=== PATIENT | female | born 1975 | race Caucasian/White ===

== ENCOUNTER 2017-09-02 14:16 | Inpatient (IN) | payer SELFPAY ==
--- NOTE | 2017-09-02 14:54 | HP ---
Screened but not Admitted - Documentation of Visit Screened but not Admitted: Yes Left Prior to Completion of Assessment: No Insurance Authorization Denied: No Patient Does Not Meet Criteria for Admission: No Level of Care Recommended at this Time: ER Evaluation/Care Additional Information/Explanation: 42 yo female presents today for alcohol detox. Patient presents very tremorous. Complain of right sided chest pain, reports "I feel like I am having heart attack." Patient also reports she has hx of fibroids and has been on her menses for four months and bleeding has worsen. Vital signs BP 169/97, HR 114, RR22, T 97.7. Aox3, no repiratory distress, lungs clear through out, s1, s2, no jvd, skin intact, no oedema or erythema. Patient was sent to [facility] for further evaluation. Patient was transported via [facility]. Patient endorse to Dr. Tan.
[2017-09-02] MEDS ORDERED: MELATONIN 5 MG TABLETS PO PRN (22:00)
--- NOTE | 2017-09-02 22:29 | HP ---
CIWA Score - CIWA Score Nausea/Vomitin-Int. Nausea w/Dry Heave Muscle Tremors: 4-Moderate,w/Arms Extend Anxiety: 7-Acute Panic/Severe Agitation: 4-Moderately Restless Paroxysmal Sweats: 3 Orientation: 3-Disoriented Date>2 days Tacttile Disturbances: 0-None Auditory Disturbances: 0-None Visual Disturbances: 0-None Headache: 3-Moderate CIWA-Ar Total Score: 28 Admission ROS BHS - HPI Chief Complaint: C/O WITHDRAWAL SX'S. CLIENT IS SEEKING DETOX TXMENT. Allergies/Adverse Reactions: Allergies Allergy/AdvReac Type Severity Reaction Status Date / Time No Known Allergies Allergy Verified 09/02/17 15:19 History of Present Illness: 42 Y.O. MALE WITH LONG HX/O ALCOHOLISM HERE FOR DETOX. CLIENT WAS SENT TO [facility] FOR ANXIETY/PANIC ATTACK AND CHEST PAIN. SHE ALSO COMPLAINED OF VAGINAL BLEEDING FOR THE LAST 3 WEEKS. SHE WAS SEEN, STABILIZED AND MEDICALLY CLEARED. CLIENT REPORTS THIS IS HER FIRST TIME IN DETOX. REFERRED BY HER ALCOHOL COUNSELOR. REPORTS LONGEST CLEAN TIME 3 WEEKS. DENIES HX/O SEIZURES AND BLACK OUTS, SI/HI. PMHX: FIBROIDS W/ VAGINAL BLEEDING X 3 WEEKS. ANEMIA. H/H DONE IN ED WNL PSYCH: DEPRESSION Exam Limitations: Other (DROWSI S/P 4 MG OF ATIVAN IN [facility] ER) - Ebola screening Have you traveled outside of the country in the last 21 days: No (N) Have you had contact with anyone from an Ebola affected area: No Have you been sick,other than usual withdrawal symptoms: No Do you have a fever: No - Review of Systems Constitutional: Chills, Loss of Appetite, Night Sweats, Changes in sleep EENT: reports: No Symptoms Reported Respiratory: reports: Shortness of Breath (ANXIETY) Cardiac: reports: Chest Pain (WITH ANXIETY. PRESENTLY DENIES) GI: reports: Nausea, Poor Appetite, Vomiting : reports: No Symptoms Reported Musculoskeletal: reports: No Symptoms Reported Integumentary: reports: No Symptoms Reported Neuro: reports: Tremors Endocrine: reports: No Symptoms Reported Hematology: reports: Anemia, Other (VAGINAL BLEEDING X 3 WEEKS DUE TO UTERINE FIBROIDS) Psychiatric: reports: Orientated x3, Anxious, Depressed Other Systems: Reviewed and Negative Patient History - Patient Medical History Hx Anemia: Yes Hx Asthma: No Hx Chronic Obstructive Pulmonary Disease (COPD): No Hx Cancer: No Hx Cardiac Disorders: No Hx Congestive Heart Failure: No Hx Hypertension: No Hx Hypercholesterolemia: No Hx Pacemaker: No HX Cerebrovascular Accident: No Hx Seizures: No Hx Dementia: No Hx Diabetes: No Hx Gastrointestinal Disorders: No Hx Liver Disease: No Hx Genitourinary Disorders: No Hx Sexually Transmitted Disorders: No Hx Renal Disease (ESRD): No Hx Thyroid Disease: No Hx Human Immunodeficiency Virus (HIV): No Hx Hepatitis C: No Hx Depression: Yes Hx Suicide Attempt: No Hx Bipolar Disorder: No Hx Schizophrenia: No Other Medical History: ANXIETY/ UTERINE FIBROIDS - Patient Surgical History Past Surgical History: Yes Hx Orthopedic Surgery: Yes (LEFT INDEX FINGER) Other Surgical History: JAW SX Anesthesia Reaction: No - PPD History Previous Implant?: No Implanted On Prior R Admission?: No PPD to be Administered?: Yes - Reproductive History Patient is a Female of Child Bearing Age (11 -55 yrs old): Yes Last Menstrual Period: 08/12/17 LMP comment: BLEEDING X 3 WEEKS Patient : No (NEG [facility] [place]) - Smoking Cessation Smoking history: Current every day smoker Have you smoked in the past 12 months: Yes Aproximately how many cigarettes per day: 15 Cigars Per Day: 0 Hx Chewing Tobacco Use: No Initiated information on smoking cessation: Yes 'Breaking Loose' booklet given: 09/02/17 - Substance & Tx. History Hx Alcohol Use: Yes Hx Substance Use: Yes Substance Use Type: Alcohol Hx Substance Use Treatment: No - Substances Abused VODKA Route: Oral Frequency: 3-6 times per week Amount used: 1PINT Age of first use: 41 Date of Last Use: 09/08/17 Family Disease History - Family Disease History Family Disease History: Other: Mother (ALCOHOLIC), Brother (DRUGS) Admission Physical Exam BHS - Vital Signs Vital Signs: Vital Signs - 24 hr 09/02/17 09/02/17 15:45 21:32 Temperature 97.7 F 98.7 F Pulse Rate 114 H 95 H Respiratory 22 18 Rate Blood Pressure 169/97 160/104 - Physical General Appearance: Yes: Other (OVERSEDATED/ DROWSI) HEENTM: Yes: EOMI, Normal ENT Inspection, Normocephalic, Normal Voice, JOSE, Pharynx Normal Respiratory: Yes: Chest Non-Tender, Lungs Clear, Normal Breath Sounds, No Respiratory Distress, No Accessory Muscle Use Neck: Yes: No masses,lesions,Nodules, Supple, Trachea in good position Breast: Yes: Breast Exam Deferred Cardiology: Yes: Regular Rhythm, S1, S2, Tachycardia Abdominal: Yes: Normal Bowel Sounds, Non Tender, Flat, Soft Genitourinary: Yes: Within Normal Limits Back: Yes: Normal Inspection Musculoskeletal: Yes: Other (UNSTEADY GAIT) Extremities: Yes: Normal Range of Motion, Non-Tender, Tremors Neurological: Yes: Alert, Disoriented (DUE TO SEDATION) Integumentary: Yes: Warm, Other (FLUSHED) Lymphatic: Yes: Within Normal Limits - Diagnostic (1) Alcohol dependence with uncomplicated withdrawal Current Visit: Yes Status: Acute (2) Uterine fibroid Current Visit: Yes Status: Chronic (3) Anemia Current Visit: Yes Status: Chronic Qualifiers: Anemia type: iron deficiency (4) Nicotine dependence Current Visit: Yes Status: Chronic Qualifiers: Nicotine product type: cigarettes Substance use status: uncomplicated Qualified Code(s): F17.210 - Nicotine dependence, cigarettes, uncomplicated (5) Vaginal bleeding Current Visit: Yes Status: Acute Cleared for Admission [facility] - Detox or Rehab [facility] Level of Care: Medically Managed Detox Regimen/Protocol: Librium Claeared for Rehab Admission: No [facility] Breath Alcohol Content Breath Alcohol Content: 0 Urine Pregancy Test - Result Urine Test Results: Negative- NO Line Present Urine Drug Screen - Results Drug Screen Negative: Yes
[2017-09-02] MEDS ORDERED: MAG HYDROX/AL HYDROX/SIMETH 30 ML UNIT-DOSE CUP PO PRN (23:00)
[2017-09-02] MEDS ORDERED: NICOTINE POLACRILEX 2 MG GUM BC PRN (23:00)
[2017-09-02] MEDS ORDERED: MENTHOL/PHENOL 1 EACH UD MM PRN (23:00)
[2017-09-02] MEDS ORDERED: MAGNESIUM HYDROX 2400MG/30ML ORAL SUSPENSION 30 ML CUP PO PRN (23:00)
[2017-09-02] MEDS ORDERED: guaiFENesin/D-METHORPHAN HB 10 ML UNIT-DOSE CUPS PO PRN (23:00)
[2017-09-02] MEDS ORDERED: P-EPHED 60MG/TRIPROLIDI 2.5MG TABLET PO PRN (23:00)
[2017-09-02] MEDS ORDERED: LOPERAMIDE HCL 2 MG CAPSULE PO PRN (23:00)
[2017-09-02] MEDS ORDERED: ACETAMINOPHEN 325 MG TABLET (FP) PO PRN (23:00)
[2017-09-02] MEDS ORDERED: MAGNESIUM CITRATE 300 ML BOTTLE PO PRN (23:00)
[2017-09-02] MEDS ORDERED: IBUPROFEN 400 MG TABLET (FP) PO PRN (23:00)
--- NOTE | 2017-09-02 23:08 | PN ---
S Progress Note Note: HOLD 2300 LIBRIUM AND REEVALUATE FOR 5AM DOSE. CLIENT OVER SEDATED. GIVEN A TOTAL OF 4 MG OF ATIVAN WHILE AT [facility] TODAY
[2017-09-02] MEDS: chlordiazePOXIDE HCL 25 MG CAPSULE PO SCH (23:59)
[2017-09-03] MEDS: chlordiazePOXIDE HCL 25 MG CAPSULE PO PRN ×2 (07:26→18:36)
--- NOTE | 2017-09-03 08:49 | CONSULT ---
[facility] Psychiatric Consult - Data Date of interview: 09/03/17 Admission source: [facility] Identifying data: This is 42 years old female, single, unemployed, homeless, with no PA support, with no psychiatric hospitalization history, reports Alcohol withdrawal symptoms and seeking for detox. Substance Abuse History: Smoking history: Current every day smoker. Have you smoked in the past 12 months: Yes. Aproximately how many cigarettes per day: 15. Cigars Per Day: 0. Hx Chewing Tobacco Use: No. Initiated information on smoking cessation: Yes. 'Breaking Loose' booklet given: 09/02/17. - Substance & Tx. History. Hx Alcohol Use: Yes. Hx Substance Use: Yes. Substance Use Type : Alcohol. Hx Substance Use Treatment: No. - Substances Abused. VODKA. Route: Oral. Frequency: 3-6 times per week. Amount used: 1PINT. Age of first use: 41. Date of Last Use: 09/08/17 Medical History: Uterine Fibroid, Anemia history Psychiatric History: Patient reports history of Anxiety, reports taking prior to admission: Zoloft 50mg poqd. Denies psychiatric hospitalization history Physical/Sexual Abuse/Trauma History: Denies Additional Comment: Zoloft 50mg poqd Mental Status Exam - Mental Status Exam Alert and Oriented to: Person Cognitive Function: Fair Patient Appearance: Unkempt Mood: Sad Affect: Flat Patient Behavior: Sedated Speech Pattern: Delayed Voice Loudness: Mildly Soft/Quiet Thought Process: Circumstantial Thought Disorder: Being Controlled Hallucinations: Denies Suicidal Ideation: Denies Homicidal Ideation: Denies Insight/Judgement: Fair Sleep: Difficulty falling asleep Appetite: Weight loss Muscle strength/Tone: Mild Hypotonicity Gait/Station: Shuffling Additional Comments: Zoloft 50mg poqd Psychiatric Findings - Problem List ([place] 1, 2,3) (1) Drug-induced mood disorder Current Visit: Yes Status: Acute (2) Alcohol dependence with uncomplicated withdrawal Current Visit: Yes Status: Acute (3) Nicotine dependence Current Visit: Yes Status: Chronic Qualifiers: Nicotine product type: cigarettes Substance use status: uncomplicated Qualified Code(s): F17.210 - Nicotine dependence, cigarettes, uncomplicated (4) Alcohol withdrawal Current Visit: No Status: Acute Qualifiers: Complication of substance-induced condition: uncomplicated Qualified Code(s ): F10.230 - Alcohol dependence with withdrawal, uncomplicated - Initial Treatment Plan Initial Treatment Plan: Zoloft 50mg poqd
[2017-09-03] MEDS ORDERED: SERTRALINE HCL 50 MG TABLET (FP) PO SCH (10:00)
[2017-09-03] MEDS ORDERED: medroxyPROGESTERone ACET 5 MG TABLET PO SCH (10:00)
[2017-09-03] MEDS: PRENATAL VITAMINS W/ FOLIC ACID TABLET (FP) PO SCH (10:13)
[2017-09-03 10:37] LABS: HEMATOCRIT 35.2 % (32.4-45.2); HEMOGLOBIN 11.8 GM/dL (10.7-15.3); MCH 30.3 pg (25.7-33.7); MCHC 33.6 g/dl (32.0-36.0); MEAN CELL VOLUME 90.2 fl (80-96); MEAN PLT VOLUME 7.2 fl (7.5-11.1); PLATELET COUNT 261 K/MM3 (134-434); RDW 21.4 % (11.6-15.6); WHITE BLOOD COUNT 5.9 K/mm3 (4.0-10.0)
[2017-09-03 10:40] LABS: CHLORIDE 100 mmol/L (98-107); POTASSIUM 3.2 mmol/L (3.5-5.1); SODIUM 137 mmol/L (136-145)
[2017-09-03 10:55] LABS: ALBUMIN 3.4 g/dl (3.4-5.0); ALK PHOS 80 U/L (45-117); ANION GAP 12 (8-16); BILIRUBIN,TOTAL 0.9 mg/dL (0.2-1.0); BLOOD UREA NITROGEN 7 mg/dL (7-18); CALCIUM 7.7 mg/dL (8.5-10.1); CO2 25 mmol/L (21-32); CREATININE 0.5 mg/dL (0.55-1.02); GLUCOSE,RANDOM 82 mg/dL (74-106); SGOT/AST 46 U/L (15-37); SGPT/ALT 26 U/L (12-78); TOT PROT 6.6 g/dl (6.4-8.2)
[2017-09-03] MEDS: NICOTINE 14 MG/24 HOURS TOPICAL PATCH TD SCH (11:05)
--- NOTE | 2017-09-03 11:26 | EKG ---
Test Reason : Blood Pressure : / mmHG Vent. Rate : 078 BPM Atrial Rate : 078 BPM P-R Int : 122 ms QRS Dur : 092 ms QT Int : 424 ms P-R-T Axes : -06 070 071 degrees QTc Int : 483 ms NORMAL SINUS RHYTHM PROLONGED QT ABNORMAL ECG WHEN COMPARED WITH ECG OF 02-SEP-2017 15:41, T WAVE INVERSION NO LONGER EVIDENT IN ANTERIOR LEADS Confirmed by DARSHAN PINA, ALVERTO ([id number]) on 09/03/2017 11:25:44 AM Referred By: Confirmed By:ALVERTO SEXTON MD
[2017-09-03] MEDS ORDERED: ONDANSETRON *ODT* 4 MG TABLET SL PRN (11:39)
--- NOTE | 2017-09-03 11:44 | PN ---
S CIWA - CIWA Score Nausea/Vomitin Muscle Tremors: 3 Anxiety: 3 Agitation: 2 Paroxysmal Sweats: 1-Minimal Palms Moist Orientation: 0-Oriented Tacttile Disturbances: 1-Very Mild Itch/Numbness Auditory Disturbances: 1-Very Mild Visual Disturbances: 0-None Headache: 2-Mild CIWA-Ar Total Score: 16 BHS Progress Note (SOAP) Subjective: alert,irritable,anxious,interrupted sleep,tremor Objective: 09/03/17 11:41 Vital Signs Temperature 98.1 F 09/03/17 09:44 Pulse Rate 97 H 09/03/17 09:44 Respiratory Rate 128 H 09/03/17 09:44 Blood Pressure 155/93 09/03/17 09:44 O2 Sat by Pulse Oximetry (%) 09/03/17 11:41 Laboratory Last Values WBC 5.9 K/mm3 (4.0-10.0) D 09/03/17 07:00 RBC 3.90 M/mm3 (3.60-5.2) 09/03/17 07:00 Hgb 11.8 GM/dL (10.7-15.3) 09/03/17 07:00 Hct 35.2 % (32.4-45.2) 09/03/17 07:00 MCV 90.2 fl (80-96) 09/03/17 07:00 MCH 30.3 pg (25.7-33.7) 09/03/17 07:00 MCHC 33.6 g/dl (32.0-36.0) 09/03/17 07:00 RDW 21.4 % (11.6-15.6) H 09/03/17 07:00 Plt Count 261 K/MM3 (134-434) 09/03/17 07:00 MPV 7.2 fl (7.5-11.1) L 09/03/17 07:00 Sodium 137 mmol/L (136-145) 09/03/17 07:00 Potassium 3.2 mmol/L (3.5-5.1) L 09/03/17 07:00 Chloride 100 mmol/L (98-107) 09/03/17 07:00 Carbon Dioxide 25 mmol/L (21-32) 09/03/17 07:00 Anion Gap 12 (8-16) 09/03/17 07:00 BUN 7 mg/dL (7-18) 09/03/17 07:00 Creatinine 0.5 mg/dL (0.55-1.02) L 09/03/17 07:00 Creat Clearance w eGFR > 60 (>60) 09/03/17 07:00 Random Glucose 82 mg/dL (74-106) 09/03/17 07:00 Calcium 7.7 mg/dL (8.5-10.1) L 09/03/17 07:00 Total Bilirubin 0.9 mg/dL (0.2-1.0) D 09/03/17 07:00 AST 46 U/L (15-37) H 09/03/17 07:00 ALT 26 U/L (12-78) 09/03/17 07:00 Alkaline Phosphatase 80 U/L (45-117) 09/03/17 07:00 Total Protein 6.6 g/dl (6.4-8.2) 09/03/17 07:00 Albumin 3.4 g/dl (3.4-5.0) 09/03/17 07:00 RPR Titer Nonreactive (NONREACTIVE) 09/03/17 07:00 Assessment: 09/03/17 11:42 withdrawal symptom Plan: continue detox,k is 3.2,hypokalemia,k dur 20 meq po bid,repeat k in am
[2017-09-03] MEDS: chlordiazePOXIDE HCL 25 MG CAPSULE PO SCH ×5 (12:10→23:28)
[2017-09-03] MEDS: POTASSIUM CHLORIDE TABS 20 MEQ TABLET.ER (FP) PO SCH ×2 (12:10→23:14)
[2017-09-03 15:43] LABS: URINE APPEARANCE CLEAR; URINE BILIRUBIN NEGATIVE (<2.0 mg/dL); URINE BLOOD 3+ (NEGATIVE); URINE COLOR YELLOW; URINE GLUCOSE (UA) NEGATIVE (NEGATIVE); URINE KETONE 1+ (NEGATIVE); URINE LEUK ESTERASE NEGATIVE (NEGATIVE); URINE NITRITE NEGATIVE (NEGATIVE); URINE PROTEIN NEGATIVE (NEGATIVE)
[2017-09-03 15:52] LABS: EPI CELLS RARE /HPF (FEW); URINE MUCUS RARE
[2017-09-03] MEDS: hydrOXYzine PAMOATE 50 MG CAPSULE (FP) PO PRN ×2 (18:36→23:20)
[2017-09-03] MEDS: THIAMINE HCL 100 MG TABLET (FP) PO SCH (23:20)
[2017-09-04] MEDS: chlordiazePOXIDE HCL 25 MG CAPSULE PO SCH ×3 (05:24→17:29)
[2017-09-04] MEDS ORDERED: MEDROXYPROGESTERONE ACET PO SCH ×2 (10:00)
[2017-09-04] MEDS: PRENATAL VITAMINS W/ FOLIC ACID TABLET (FP) PO SCH (10:16)
[2017-09-04] MEDS: POTASSIUM CHLORIDE TABS 20 MEQ TABLET.ER (FP) PO SCH ×2 (10:16→22:07)
[2017-09-04] MEDS: SERTRALINE HCL 50 MG PO SCH (10:16)
[2017-09-04] MEDS: NICOTINE 14 MG/24 HOURS TOPICAL PATCH TD SCH (10:17)
--- NOTE | 2017-09-04 10:48 | PN ---
S CIWA - CIWA Score Nausea/Vomitin Muscle Tremors: 3 Anxiety: 3 Agitation: 2 Paroxysmal Sweats: 1-Minimal Palms Moist Orientation: 0-Oriented Tacttile Disturbances: 1-Very Mild Itch/Numbness Auditory Disturbances: 1-Very Mild Visual Disturbances: 0-None Headache: 2-Mild CIWA-Ar Total Score: 16 BHS Progress Note (SOAP) Subjective: alert,irritable,interrupted sleep,pain i the body Objective: 09/04/17 10:46 Vital Signs Temperature 98.2 F 09/04/17 09:19 Pulse Rate 93 H 09/04/17 09:19 Respiratory Rate 18 09/04/17 09:19 Blood Pressure 124/85 09/04/17 09:19 O2 Sat by Pulse Oximetry (%) Laboratory Last Values WBC 5.9 K/mm3 (4.0-10.0) D 09/03/17 07:00 RBC 3.90 M/mm3 (3.60-5.2) 09/03/17 07:00 Hgb 11.8 GM/dL (10.7-15.3) 09/03/17 07:00 Hct 35.2 % (32.4-45.2) 09/03/17 07:00 MCV 90.2 fl (80-96) 09/03/17 07:00 MCH 30.3 pg (25.7-33.7) 09/03/17 07:00 MCHC 33.6 g/dl (32.0-36.0) 09/03/17 07:00 RDW 21.4 % (11.6-15.6) H 09/03/17 07:00 Plt Count 261 K/MM3 (134-434) 09/03/17 07:00 MPV 7.2 fl (7.5-11.1) L 09/03/17 07:00 Sodium 137 mmol/L (136-145) 09/03/17 07:00 Potassium 3.2 mmol/L (3.5-5.1) L 09/03/17 07:00 Chloride 100 mmol/L (98-107) 09/03/17 07:00 Carbon Dioxide 25 mmol/L (21-32) 09/03/17 07:00 Anion Gap 12 (8-16) 09/03/17 07:00 BUN 7 mg/dL (7-18) 09/03/17 07:00 Creatinine 0.5 mg/dL (0.55-1.02) L 09/03/17 07:00 Creat Clearance w eGFR > 60 (>60) 09/03/17 07:00 Random Glucose 82 mg/dL (74-106) 09/03/17 07:00 Calcium 7.7 mg/dL (8.5-10.1) L 09/03/17 07:00 Total Bilirubin 0.9 mg/dL (0.2-1.0) D 09/03/17 07:00 AST 46 U/L (15-37) H 09/03/17 07:00 ALT 26 U/L (12-78) 09/03/17 07:00 Alkaline Phosphatase 80 U/L (45-117) 09/03/17 07:00 Total Protein 6.6 g/dl (6.4-8.2) 09/03/17 07:00 Albumin 3.4 g/dl (3.4-5.0) 09/03/17 07:00 Urine Color Yellow 09/03/17 10:45 Urine Appearance Clear 09/03/17 10:45 Urine pH 7.0 (5.0-8.0) 09/03/17 10:45 Ur Specific [place] 1.013 (1.001-1.035) 09/03/17 10:45 Urine Protein Negative (NEGATIVE) 09/03/17 10:45 Urine Glucose (UA) Negative (NEGATIVE) 09/03/17 10:45 Urine Ketones 1+ (NEGATIVE) H 09/03/17 10:45 Urine Blood 3+ (NEGATIVE) H 09/03/17 10:45 Urine Nitrite Negative (NEGATIVE) 09/03/17 10:45 Urine Bilirubin Negative (<2.0 mg/dL) 09/03/17 10:45 Urine Urobilinogen 2.0 mg/dL (0.2-1.0) H 09/03/17 10:45 Ur Leukocyte Esterase Negative (NEGATIVE) 09/03/17 10:45 Urine WBC (Auto) 84 /hpf (3-5) 09/03/17 10:45 Urine RBC (Auto) 186 /hpf (0-3) 09/03/17 10:45 Ur Epithelial Cells Rare /HPF (FEW) 09/03/17 10:45 Urine Mucus Rare 09/03/17 10:45 RPR Titer Nonreactive (NONREACTIVE) 09/03/17 07:00 Assessment: 09/04/17 10:47 withdrawal symptom Plan: continue detox,on k replacement,urine for c/s r/o uti,bactim ds 1 tab po bid
[2017-09-04] MEDS: SULFAMETHOXAZOLE/TRIMETHOPRIM 800MG/160MG D.S. TABLET PO SCH ×2 (11:00→22:07)
[2017-09-04] MEDS: chlordiazePOXIDE HCL 25 MG CAPSULE PO PRN (13:15)
[2017-09-04] MEDS: hydrOXYzine PAMOATE 50 MG CAPSULE (FP) PO PRN ×2 (18:14→22:11)
[2017-09-04] MEDS: chlordiazePOXIDE 5 MG CAPSULE PO SCH (22:07)
[2017-09-04] MEDS: THIAMINE HCL 100 MG TABLET (FP) PO SCH (22:08)
[2017-09-05] MEDS: chlordiazePOXIDE 5 MG CAPSULE PO SCH (05:24)
[2017-09-05] MEDS: chlordiazePOXIDE HCL 25 MG CAPSULE PO PRN (09:04)
--- NOTE | 2017-09-05 09:21 | PN ---
S Progress Note (SOAP) Subjective: alert,no complaint Objective: 09/05/17 09:19 Vital Signs Temperature 98.1 F 09/05/17 06:19 Pulse Rate 87 09/05/17 06:19 Respiratory Rate 18 09/05/17 06:19 Blood Pressure 138/74 09/05/17 06:19 O2 Sat by Pulse Oximetry (%) Assessment: 09/05/17 09:19 patient is stable for discharge to go to rehab for further level of care Plan: discharge today,urine for c/s pending
--- NOTE | 2017-09-05 09:24 | DS ---
[facility] Detox Discharge Summary Admission Date: 09/02/17 Discharge Date: 09/05/17 - History Present History: Alcohol Dependence Additional Comments: patient is stable for discharge to go to rehab as arrangement Pertinent Past History: fibroid uterus - Physical Exam Results Vital Signs: Vital Signs Temperature 98.1 F 09/05/17 06:19 Pulse Rate 87 09/05/17 06:19 Respiratory Rate 18 09/05/17 06:19 Blood Pressure 138/74 09/05/17 06:19 O2 Sat by Pulse Oximetry (%) Pertinent Admission Physical Exam Findings: withdrawal signs and symptom - Treatment Hospital Course: Detox Protocol Followed, Detoxed Safely, Responded well, Discharged Condition Good Patient has Accepted a Rehab Referral to: follow up with rehab as arrangeemnt - Medication Discharge Medications: Ambulatory Orders Medroxyprogesterone Acetate [Provera] 10 mg PO DAILY 09/02/17 Sertraline HCl 50 mg PO DAILY #30 tablet 09/03/17 - Diagnosis (1) Alcohol dependence with uncomplicated withdrawal Current Visit: Yes Status: Acute (2) Hypokalemia Current Visit: Yes Status: Acute (3) Vaginal bleeding Current Visit: Yes Status: Acute (4) Nicotine dependence Current Visit: Yes Status: Chronic Qualifiers: Nicotine product type: cigarettes Substance use status: uncomplicated Qualified Code(s): F17.210 - Nicotine dependence, cigarettes, uncomplicated (5) Uterine fibroid Current Visit: Yes Status: Chronic (6) UTI (urinary tract infection) Current Visit: Yes Status: Acute - AMA Did Patient Leave Against Medical Advice: No
[2017-09-05] MEDS: SULFAMETHOXAZOLE/TRIMETHOPRIM 800MG/160MG D.S. TABLET PO SCH (09:28)
[2017-09-05] MEDS: SERTRALINE HCL 50 MG PO SCH (09:28)
[2017-09-05] MEDS: POTASSIUM CHLORIDE TABS 20 MEQ TABLET.ER (FP) PO SCH (09:28)
[2017-09-05] MEDS: PRENATAL VITAMINS W/ FOLIC ACID TABLET (FP) PO SCH (09:28)
[2017-09-05 09:37] VITALS: BP 128/88; PULSE 110; TEMP 97.7
[2017-09-05] MEDS ORDERED: chlordiazePOXIDE HCL 10 MG CAPSULE PO SCH (23:00)
== END 2017-09-05 09:28 | disposition other institution (70) | DRG 775 ==
LOC: YASAS 14:16 → Y6N 23:09
PROVIDERS: ADMIT Surgery; ATTEND Surgery
PROC: HZ2ZZZZ Detoxification Services for Substance Abuse Treatment (ICD-10-PCS; principal; 2017-09-02)
DX: F10.230 Alcohol dependence with withdrawal, uncomplicated (principal); F17.210 Nicotine dependence, cigarettes, uncomplicated; F19.24 Other psychoactive substance dependence with psychoactive substance-induced mood disorder; E86.0 Dehydration; N39.0 Urinary tract infection, site not specified; N93.8 Other specified abnormal uterine and vaginal bleeding; D25.9 Leiomyoma of uterus, unspecified; F41.8 Other specified anxiety disorders; Z59.0 Homelessness
CPT/HCPCS: 36415; 80053; 81003; 81015; 85027; 86593; 93005; 93010

== ENCOUNTER 2017-09-02 15:09 | Emergency (ER) | payer SELFPAY ==
[2017-09-02 15:31] VITALS: BMI 31.2
--- NOTE | 2017-09-02 15:31 | PDOC ---
History of Present Illness - General History Source: Patient Exam Limitations: No Limitations - History of Present Illness Initial Comments: 09/02/17 15:55 Patient is a 42 year old female with a significant past medical history of Fibroids who was brought by EMS to the ED with complaints of alcohol withdrawal. As per [facility] staff, patient was exhibiting withdrawal symptoms from alcohol, prompting them to send the patient to the ED for further evaluation. Patient reports experiencing associated symptoms of chest pain, vaginal bleeding, nausea and multiple episodes of vomiting within the last 24 hours, but states she does not remember the amount. Denies shortness of breath, coughing. Denies contact with sick individuals, out of state travelling. Denies trauma to affected area, change in vision. Denies dysuria, constipation, diarrhea. Denies any other symptoms. Allergies: None. Social history: From [facility]. Current alcohol use (Last 09/01). No smoking. No illicit drugs. Surgical history: None PMD: Dr. Shook. <Saran Vargas - Last Filed: 09/02/17 15:55> - History of Present Illness Initial Comments: Pt has no local family. She was accompanied by her friends- [employer] [phone] [facility] [phone] <Rut Yeung - Last Filed: 09/02/17 18:56> - General Chief Complaint: Alcohol intoxication Stated Complaint: CHEST PAIN, Time Seen by Provider: 09/02/17 15:21 Past History <Saran Vargas - Last Filed: 09/02/17 15:55> - Past Medical History COPD: No - Suicide/Smoking/Psychosocial Hx Smoking History: Unknown if ever smoked Have you smoked in the past 12 months: No Information on smoking cessation initiated: No Hx Alcohol Use: Yes Drug/Substance Use Hx: No Substance Use Type: Alcohol <Rut Yeung - Last Filed: 09/02/17 18:56> - Past Medical History Allergies/Adverse Reactions: Allergies Allergy/AdvReac Type Severity Reaction Status Date / Time No Known Allergies Allergy Verified 09/02/17 15:19 Review of Systems - Review of Systems Able to Perform ROS?: Yes Comments:: 09/02/17 15:55 GENERAL/CONSTITUTIONAL: No fever or chills. No weakness. HEAD, EYES, EARS, NOSE AND THROAT: No change in vision. No ear pain or discharge. No sore throat. GASTROINTESTINAL: +Nausea. No vomiting, diarrhea or constipation. GENITOURINARY: +Vaginal bleeding. No dysuria, frequency, or change in urination. CARDIOVASCULAR: +Chest pain. No shortness of breath. RESPIRATORY: No cough, wheezing, or hemoptysis. MUSCULOSKELETAL: No joint or muscle swelling or pain. No neck or back pain. SKIN: No rash NEUROLOGIC: No headache, vertigo, loss of consciousness, or change in strength/ sensation. ENDOCRINE: No increased thirst. No abnormal weight change. HEMATOLOGIC/LYMPHATIC: No anemia, easy bleeding, or history of blood clots. ALLERGIC/IMMUNOLOGIC: No hives or skin allergy. <Saran Vargas - Last Filed: 09/02/17 15:55> *Physical Exam - Vital Signs Last Vital Signs Temp Pulse Resp BP Pulse Ox 97.9 F 109 H 20 168/94 99 09/02/17 15:19 09/02/17 15:19 09/02/17 15:19 09/02/17 15:19 09/02/17 15:19 <Saran Vargas - Last Filed: 09/02/17 15:55> - Vital Signs Last Vital Signs Temp Pulse Resp BP Pulse Ox 97.9 F 109 H 20 168/94 99 09/02/17 15:19 09/02/17 15:19 09/02/17 15:19 09/02/17 15:19 09/02/17 15:19 - Physical Exam Comments: GENERAL: Awake, alert, and fully oriented. Anxious, tremulous. HEAD: No signs of trauma EYES: PERRLA, EOMI, sclera anicteric, conjunctiva clear ENT: Auricles normal inspection, hearing grossly normal, nares patent, oropharynx clear without exudates. Dry mucosa NECK: Normal ROM, supple, no lymphadenopathy, JVD, or masses LUNGS: Breath sounds equal, clear to auscultation bilaterally. No wheezes, and no crackles HEART: Tachycardic with regular rhythm, normal S1 and S2, no murmurs, rubs or gallops ABDOMEN: Soft, nontender, normoactive bowel sounds. No guarding, no rebound. No masses EXTREMITIES: Normal range of motion, no edema. No clubbing or cyanosis. No cords, erythema, or tenderness. +Tremors in the hands B/L. +Tenderness to biceps muscles B/L, no overlying skin changes. NEUROLOGICAL: Cranial nerves II through XII grossly intact. Normal speech, normal gait. Motor and sensation intact. SKIN: Warm, Dry, normal turgor, no rashes or lesions noted. <Rut Yeung - Last Filed: 09/02/17 18:56> Heart Score/ECG Review - ECG Impressions Comment:: EKG read 15:50- NSR 96 bpm, no acute ST/T changes <Rut Yeung - Last Filed: 09/02/17 18:56> ED Treatment Course - LABORATORY CBC & Chemistry Diagram: 09/02/17 15:40 09/02/17 15:40 - ADDITIONAL ORDERS Additional order review: 09/02/17 15:40 RBC 4.16 MCV 87.5 MCHC 33.7 RDW 22.6 H MPV 6.6 L Neutrophils % 78.0 Lymphocytes % 14.8 Monocytes % 5.5 Eosinophils % 0.4 Basophils % 1.3 - Medications Given in the ED: ED Medications Discontinued Medications Generic Name Dose Route Start Last Admin Trade Name Freq PRN Reason Stop Dose Admin Lorazepam 2 mg 09/02/17 15:32 09/02/17 15:40 Ativan Injection - IVPUSH 09/02/17 15:33 2 mg ONCE ONE Administration <Saran Vargas - Last Filed: 09/02/17 15:55> - LABORATORY CBC & Chemistry Diagram: 09/02/17 15:40 09/02/17 15:40 <Rut Yeung - Last Filed: 09/02/17 18:56> Medical Decision Making - Medical Decision Making 09/02/17 15:51 Pt given ativan on initial evaluation for impending DTs. She still has some tremors. Will give an additional dose of ativan. 09/02/17 18:55 Pt resting comfortably at this time, slightly somnolent. Will reassess when more alert, poss transfer to [facility] detox. <Rut Yeung - Last Filed: 09/02/17 18:56> *DC/Admit/Observation/Transfer - Attestations Scribe Attestion: 09/02/17 15:56 Documentation prepared by Saran Vargas, acting as nuclear medicine medical director for Rut Yeung MD. <Saran Vargas - Last Filed: 09/02/17 15:55> <Rut Yeung - Last Filed: 09/02/17 18:56> Diagnosis at time of Disposition: Vaginal bleeding Alcohol withdrawal Qualifiers: Complication of substance-induced condition: uncomplicated Qualified Code(s): F10.230 - Alcohol dependence with withdrawal, uncomplicated - Referrals Referrals: Isabela Shook MD [Primary Care Provider] - - Patient Instructions - Post Discharge Activity
[2017-09-02] MEDS ORDERED: SODIUM CHLORIDE 1,000 ML IV STA (15:32)
[2017-09-02] MEDS ORDERED: LORazepam 2 MG/ML SDV VIAL ONE ×2 (15:34→15:57)
[2017-09-02] MEDS ORDERED: FAMOTIDINE 20 MG/50 ML IVPB 20 MG/50 ML MG IVPB ONE (15:38)
[2017-09-02] MEDS ORDERED: ONDANSETRON 4 MG/2 ML VIAL IVPUSH ONE (15:38)
[2017-09-02 15:47] LABS: BASO % 1.3 % (0-2.0); EOS % 0.4 % (0-4.5); HEMATOCRIT 36.4 % (32.4-45.2); HEMOGLOBIN 12.3 GM/dL (10.7-15.3); LYMPH % 14.8 % (8-40); MCH 29.5 pg (25.7-33.7); MCHC 33.7 g/dl (32.0-36.0); MEAN CELL VOLUME 87.5 fl (80-96); MEAN PLT VOLUME 6.6 fl (7.5-11.1); MONO % 5.5 % (3.8-10.2); PLATELET COUNT 291 K/MM3 (134-434); RBC 4.16 M/mm3 (3.60-5.2); RDW 22.6 % (11.6-15.6); WHITE BLOOD COUNT 8.6 K/mm3 (4.0-10.0)
[2017-09-02] MEDS ORDERED: ONDANSETRON 4 MG/2 ML VIAL ONE (15:48)
[2017-09-02 16:10] LABS: URINE APPEARANCE CLOUDY; URINE BILIRUBIN NEGATIVE (<2.0 mg/dL); URINE BLOOD 3+ (NEGATIVE); URINE COLOR RED; URINE GLUCOSE (UA) 1+ (NEGATIVE); URINE KETONE 1+ (NEGATIVE); URINE LEUK ESTERASE NEGATIVE (NEGATIVE); URINE NITRITE NEGATIVE (NEGATIVE); URINE UROBILINOGEN NEGATIVE mg/dL (0.2-1.0)
[2017-09-02 16:10] LABS: INR 0.99 (0.82-1.09); PROTHROMBIN TIME (PATIENT) 11.2 SEC (9.7-13.0)
[2017-09-02 16:12] LABS: ACTIVATED PTT 26.1 SECONDS (26.9-34.4)
[2017-09-02 16:19] LABS: URINE PROTEIN 3+ (NEGATIVE)
[2017-09-02 16:27] LABS: URINE MUCUS RARE
[2017-09-02 16:53] LABS: ALBUMIN 3.7 g/dl (3.4-5.0); ANION GAP 17 (8-16); BILIRUBIN,TOTAL 0.7 mg/dL (0.2-1.0); BLOOD UREA NITROGEN 10 mg/dL (7-18); CALCIUM 7.9 mg/dL (8.5-10.1); CHLORIDE 95 mmol/L (98-107); CO2 21 mmol/L (21-32); CREATININE 0.6 mg/dL (0.55-1.02); GLUCOSE,RANDOM 73 mg/dL (74-106); LIPASE 75 U/L (73-393); POTASSIUM 3.6 mmol/L (3.5-5.1); SGOT/AST 49 U/L (15-37); SGPT/ALT 27 U/L (12-78); SODIUM 133 mmol/L (136-145); TOT PROT 7.2 g/dl (6.4-8.2)
[2017-09-02 16:55] LABS: ALK PHOS 88 U/L (45-117)
[2017-09-02] MEDS ORDERED: FOLIC ACID INJECTION - 1 MG, THIAMINE HCL 100 MG, MULTIVIT INJECTION ADULT 10 ML in SOD... IVPB ONE (18:15)
--- NOTE | 2017-09-02 19:45 | PDOC ---
*Physical Exam - Vital Signs Last Vital Signs Temp Pulse Resp BP Pulse Ox 97.9 F 109 H 20 168/94 99 09/02/17 15:19 09/02/17 15:19 09/02/17 15:19 09/02/17 15:19 09/02/17 15:19 ED Treatment Course - LABORATORY CBC & Chemistry Diagram: 09/02/17 15:40 09/02/17 15:40 - ADDITIONAL ORDERS Additional order review: Laboratory Results 09/02/17 09/02/17 09/02/17 15:40 15:40 15:40 PT with INR 11.20 INR 0.99 PTT (Actin FS) 26.1 L Sodium 133 L Potassium 3.6 Chloride 95 L Carbon Dioxide 21 Anion Gap 17 H BUN 10 Creatinine 0.6 Creat Clearance w eGFR > 60 Random Glucose 73 L Calcium 7.9 L Total Bilirubin 0.7 AST 49 H ALT 27 Alkaline Phosphatase 88 Creatine Kinase 399 H Creatine Kinase Index 2.0 CK-MB (CK-2) 8.133 H Troponin I < 0.02 Total Protein 7.2 Albumin 3.7 Lipase 75 Serum , Qual Urine Color Urine Appearance Urine pH Ur Specific [place] Urine Protein Urine Glucose (UA) Urine Ketones Urine Blood Urine Nitrite Urine Bilirubin Urine Urobilinogen Ur Leukocyte Esterase Urine WBC (Auto) Urine RBC (Auto) Urine Mucus Alcohol, Quantitative < 5.0 09/02/17 09/02/17 15:40 15:29 PT with INR INR PTT (Actin FS) Sodium Potassium Chloride Carbon Dioxide Anion Gap BUN Creatinine Creat Clearance w eGFR Random Glucose Calcium Total Bilirubin AST ALT Alkaline Phosphatase Creatine Kinase Creatine Kinase Index CK-MB (CK-2) Troponin I Total Protein Albumin Lipase Serum , Qual Negative Urine Color Red Urine Appearance Cloudy Urine pH 6.0 Ur Specific [place] 1.023 Urine Protein 3+ H Urine Glucose (UA) 1+ H Urine Ketones 1+ H Urine Blood 3+ H Urine Nitrite Negative Urine Bilirubin Negative Urine Urobilinogen Negative Ur Leukocyte Esterase Negative Urine WBC (Auto) 4 Urine RBC (Auto) 4902 Urine Mucus Rare Alcohol, Quantitative 09/02/17 15:40 RBC 4.16 MCV 87.5 MCHC 33.7 RDW 22.6 H MPV 6.6 L Neutrophils % 78.0 Lymphocytes % 14.8 Monocytes % 5.5 Eosinophils % 0.4 Basophils % 1.3 - Medications Given in the ED: ED Medications Discontinued Medications Generic Name Dose Route Start Last Admin Trade Name Deepali PRN Reason Stop Dose Admin Sodium Chloride 1,000 mls @ 1,000 mls/hr 09/02/17 15:32 09/02/17 15:57 Normal Saline - IV 09/02/17 16:31 1,000 mls/hr ASDIR STA Administration Famotidine/Sodium Chloride 20 mg in 50 mls @ 100 mls/hr 09/02/17 15:38 16:04 Pepcid 20 Mg Premixed Ivpb - IVPB 09/02/17 16:07 100 mls/hr ONCE ONE Administration Lorazepam 2 mg 09/02/17 15:32 09/02/17 15:40 Ativan Injection - IVPUSH 09/02/17 15:33 2 mg ONCE ONE Administration Lorazepam 2 mg 09/02/17 15:54 09/02/17 16:04 Ativan Injection - IVPUSH 09/02/17 15:55 2 mg ONCE ONE Administration Ondansetron HCl 4 mg 09/02/17 15:38 09/02/17 15:57 Zofran Injection IVPUSH 09/02/17 15:39 4 mg ONCE ONE Administration Medical Decision Making - Medical Decision Making 09/02/17 19:43 Pt is awake and alert and she is agreeing to return to detox center at [facility]. Stable for discharge. Labs are normal. SHe no longer has chest pain. She will go to detox with security. *DC/Admit/Observation/Transfer Diagnosis at time of Disposition: Vaginal bleeding Alcohol withdrawal Qualifiers: Complication of substance-induced condition: uncomplicated Qualified Code(s): F10.230 - Alcohol dependence with withdrawal, uncomplicated - Discharge Dispostion Disposition: HOME Condition at time of disposition: Stable Decision to Admit order: No - Referrals Referrals: Isabela Shook MD [Primary Care Provider] - - Patient Instructions Printed Discharge Instructions: DI for Alcohol Abuse - Post Discharge Activity - Transfer to Acute Care Facility Transfer comment: 09/02/17 19:45 We will be sending you back to [facility] for alcohol detox.
[2017-09-02 20:15] VITALS: BP 167/90; PULSE 90; TEMP 97.8
--- NOTE | 2017-09-02 22:01 | EKG ---
Test Reason : Blood Pressure : / mmHG Vent. Rate : 096 BPM Atrial Rate : 096 BPM P-R Int : 112 ms QRS Dur : 092 ms QT Int : 394 ms P-R-T Axes : 000 060 057 degrees QTc Int : 497 ms NORMAL SINUS RHYTHM PROLONGED QT ABNORMAL ECG NO PREVIOUS ECGS AVAILABLE Confirmed by MARINO PERERA MD ([id number]) on 09/02/2017 10:01:11 PM Referred By: Confirmed By:MARINO PERERA MD
== END 2017-09-02 20:44 | disposition home or self-care (01) ==
LOC: JER 15:09
PROC: 3E033GC Introduction of Other Therapeutic Substance into Peripheral Vein, Percutaneous Approach (ICD-10-PCS; principal; 2017-09-02)
PROC: 3E033GC Introduction of Other Therapeutic Substance into Peripheral Vein, Percutaneous Approach (ICD-10-PCS; 2017-09-02)
PROC: 3E033NZ Introduction of Analgesics, Hypnotics, Sedatives into Peripheral Vein, Percutaneous Approach (ICD-10-PCS; 2017-09-02)
PROC: 3E033NZ Introduction of Analgesics, Hypnotics, Sedatives into Peripheral Vein, Percutaneous Approach (ICD-10-PCS; 2017-09-02)
PROC: 3E033GC Introduction of Other Therapeutic Substance into Peripheral Vein, Percutaneous Approach (ICD-10-PCS; 2017-09-02)
DX: F10.230 Alcohol dependence with withdrawal, uncomplicated (principal); N93.8 Other specified abnormal uterine and vaginal bleeding; Z59.0 Homelessness
CPT/HCPCS: 36415; 76830-TC; 80053; 80307; 81003; 81015; 82550; 82553; 83690; 84484; 84703; 85025; 85610; 85730; 93005; 93010; 99283-25; J7030

== ENCOUNTER 2018-01-30 15:02 | Inpatient (IN) | payer OTHER ==
[2018-01-30 16:35] VITALS: BMI 19.8
--- NOTE | 2018-01-30 18:10 | HP ---
"CIWA Score - CIWA Score Nausea/Vomitin (states vomited earlier) Muscle Tremors: 4-Moderate,w/Arms Extend Anxiety: 4-Mod. Anxious/Guarded Agitation: 4-Moderately Restless Paroxysmal Sweats: 1-Minimal Palms Moist Orientation: 0-Oriented Tacttile Disturbances: 0-None Auditory Disturbances: 0-None Visual Disturbances: 0-None Headache: 0-None Present CIWA-Ar Total Score: 16 Admission ROS BHS - HPI Chief Complaint: Here for alcohol withdrawal. Allergies/Adverse Reactions: Allergies Allergy/AdvReac Type Severity Reaction Status Date / Time No Known Allergies Allergy Verified 01/30/18 17:23 History of Present Illness: Hx Alcohol use since age 11/12. Drinks daily but recent 10 day binge of increased amounts of alcohol. ( 2 pints vodka daily, whisky) Longest length of sobriety 2 - 3 weeks. Denies seizures. May have had blackouts in the past. States has fibroid with heavy menses w/ clots. Takes Provera when not drinking. Denies other significant PMH/PSH. Search Terms: Kate Alicia, 1975 Search Date: 01/30/2018 06:43:55 PM The Drug Utilization Report below displays all of the controlled substance prescriptions, if any, that your patient has filled in the last twelve months. The information displayed on this report is compiled from pharmacy submissions to the Department, and accurately reflects the information as submitted by the pharmacies. This report was requested by: Elvia Rosenthal | Reference #: [id number] There are no results for the search terms that you entered. Exam Limitations: No Limitations - Ebola screening Have you traveled outside of the country in the last 21 days: No Have you had contact with anyone from an Ebola affected area: No Have you been sick,other than usual withdrawal symptoms: No Do you have a fever: No - Review of Systems Constitutional: Diaphoresis, Changes in sleep (Difficulty staying asleep.) EENT: reports: Hearing Loss, Dental Problems (Pain in (R) back tooth. Chews and swalliows ok.), Other (Two oral growth in mouth on gums being f/u by dentist.) Respiratory: reports: No Symptoms reported Cardiac: reports: No Symptoms Reported, Irregular Heart Rate (On when drinking alot) GI: reports: Nausea : reports: No Symptoms Reported Musculoskeletal: reports: No Symptoms Reported Integumentary: reports: No Symptoms Reported Neuro: reports: No Symptoms reported, Tremors Endocrine: reports: No Symptoms Reported Hematology: reports: No Symptoms Reported Psychiatric: reports: Judgement Intact, Orientated x3, Agitated, Anxious, Depressed (Denies thoughts of harming self or others) Patient History - Patient Medical History Hx Anemia: Yes Hx Asthma: No Hx Chronic Obstructive Pulmonary Disease (COPD): No Hx Cancer: No Hx Cardiac Disorders: No Hx Congestive Heart Failure: No Hx Hypertension: No Hx Hypercholesterolemia: No Hx Pacemaker: No HX Cerebrovascular Accident: No Hx Seizures: No Hx Dementia: No Hx Diabetes: No Hx Gastrointestinal Disorders: No Hx Liver Disease: No Hx Genitourinary Disorders: Yes (Chlamydia years ago - rx'd ) Hx Sexually Transmitted Disorders: No Hx Renal Disease (ESRD): No Hx Thyroid Disease: No Hx Human Immunodeficiency Virus (HIV): No Hx Hepatitis C: No Hx Depression: Yes Hx Suicide Attempt: No Hx Bipolar Disorder: No Hx Schizophrenia: No - Patient Surgical History Past Surgical History: Yes Hx Neurologic Surgery: No Hx Cataract Extraction: No Hx Cardiac Surgery: No Hx Lung Surgery: No Hx Breast Surgery: No Hx Breast Biopsy: No Hx Abdominal Surgery: No Hx Appendectomy: No Hx Cholecystectomy: No Hx Genitourinary Surgery: No Hx Section: No Hx Orthopedic Surgery: Yes (LEFT INDEX FINGER) Other Surgical History: JAW SX Anesthesia Reaction: No - PPD History Previous Implant?: Yes Documented Results: Negative w/proof Date: 09/04/17 PPD to be Administered?: No - Reproductive History Patient is a Female of Child Bearing Age (11 -55 yrs old): Yes Last Menstrual Period: 12/23/17 (Not sexually active) Patient : No - Smoking Cessation Smoking history: Current every day smoker Have you smoked in the past 12 months: No Aproximately how many cigarettes per day: 20 Cigars Per Day: 0 Hx Chewing Tobacco Use: No Initiated information on smoking cessation: Yes 'Breaking Loose' booklet given: 01/30/18 - Substance & Tx. History Hx Alcohol Use: Yes Hx Substance Use: Yes Substance Use Type: Alcohol Hx Substance Use Treatment: Yes (detox, rehab) - Substances Abused Alcohol Route: Oral Frequency: Daily Amount used: LIQUOR- 1 PINT, BEER 3 (16oz) Age of first use: 14 Date of Last Use: 01/30/18 Family Disease History - Family Disease History Family Disease History: Other: Mother (ALCOHOLIC), Brother (DRUGS) Admission Physical Exam [facility] - Vital Signs Vital Signs: Vital Signs - 24 hr 01/30/18 16:32 Temperature 99.1 F Pulse Rate 108 H Respiratory 20 Rate Blood Pressure 158/99 - Physical General Appearance: Yes: Moderate Distress, Tremorous, Irritable, Sweating, Anxious HEENTM: Yes: EOMI, Hearing grossly Normal, Normocephalic, Normal Voice, JOSE Respiratory: Yes: Chest Non-Tender, Lungs Clear, Normal Breath Sounds, No Respiratory Distress Neck: Yes: No masses,lesions,Nodules, Supple Breast: Yes: Breast Exam Deferred Cardiology: Yes: Regular Rhythm, Regular Rate, S1, S2 Abdominal: Yes: Non Tender, Flat, Soft, Increased Bowel Sounds Genitourinary: Yes: Within Normal Limits Back: Yes: Normal Inspection Musculoskeletal: Yes: full range of Motion, Gait Steady Extremities: Yes: Normal Capillary Refill, Normal Inspection, Normal Range of Motion, Non-Tender, Tremors Neurological: Yes: full fashioned garment knitter II-XII NML intact, Fully Oriented, Motor Strength 5/5, Normal Mood/Affect, Normal Response Integumentary: Yes: Normal Color, Dry (Decereased skin turgor. Dry, chapped lips and skin around mouth.), Warm Lymphatic: Yes: Within Normal Limits - Diagnostic (1) Alcohol dependence with uncomplicated withdrawal Current Visit: Yes Status: Acute (2) Nicotine dependence Current Visit: Yes Status: Chronic Qualifiers: Nicotine product type: cigarettes Substance use status: uncomplicated Qualified Code(s): F17.210 - Nicotine dependence, cigarettes, uncomplicated (3) Uterine fibroid Current Visit: Yes Status: Chronic Qualifiers: Uterine leiomyoma location: unspecified location Qualified Code(s): D25.9 - Leiomyoma of uterus, unspecified (4) Dehydration Current Visit: Yes Status: Acute Cleared for Admission [facility] - Detox or Rehab [facility] Level of Care: Medically Managed Detox Regimen/Protocol: Librium [facility] Breath Alcohol Content Breath Alcohol Content: 0.275 Urine Pregancy Test - Result Urine Test Results: Negative- NO Line Present Urine Drug Screen - Results Drug Screen Negative: Yes"
[2018-01-30] MEDS ORDERED: ACETAMINOPHEN 325 MG TABLET (FP) PO PRN (18:25)
[2018-01-30] MEDS ORDERED: MAGNESIUM CITRATE 300 ML BOTTLE PO PRN (18:25)
[2018-01-30] MEDS ORDERED: MAGNESIUM HYDROX 2400MG/30ML ORAL SUSPENSION 30 ML CUP PO PRN (18:25)
[2018-01-30] MEDS ORDERED: NICOTINE POLACRILEX 2 MG GUM BC PRN (18:25)
[2018-01-30] MEDS ORDERED: MAG HYDROX/AL HYDROX/SIMETH 30 ML UNIT-DOSE CUP PO PRN (18:25)
[2018-01-30] MEDS ORDERED: LOPERAMIDE HCL 2 MG CAPSULE PO PRN (18:25)
[2018-01-30] MEDS ORDERED: MENTHOL/PHENOL 1 EACH UD MM PRN (18:25)
[2018-01-30] MEDS ORDERED: chlordiazePOXIDE HCL 25 MG CAPSULE PO ONE (18:45)
[2018-01-30] MEDS ORDERED: VITAMINS A AND D TOPICAL OINTMENT 60 GM TUBE TP PRN (19:00)
[2018-01-30] MEDS: hydrOXYzine PAMOATE 25 MG CAPSULE (FP) PO ONE ×2 (21:28→21:30)
[2018-01-31] MEDS: THIAMINE HCL 100 MG TABLET (FP) PO SCH ×2 (00:44→22:19)
[2018-01-31] MEDS: chlordiazePOXIDE HCL 25 MG CAPSULE PO SCH ×5 (00:45→22:20)
[2018-01-31] MEDS: chlordiazePOXIDE HCL 25 MG CAPSULE PO PRN ×2 (03:40→12:29)
[2018-01-31] MEDS: IBUPROFEN 400 MG TABLET (FP) PO PRN ×2 (03:40→22:20)
[2018-01-31] MEDS ORDERED: hydrOXYzine PAMOATE 50 MG CAPSULE (FP) PO PRN (09:53)
--- NOTE | 2018-01-31 10:03 | CONSULT ---
[facility] Psychiatric Consult - Data Date of interview: 01/31/18 Admission source: [facility] Identifying data: This is 43 years old female, singlr, unemployed, living with roommate, with no psychiatric hospitalization history, with no financial support , reports Alcohol, Nicotine dependence, reports Alcohol withdrawal symptoms and seeking detox. Denies syicidal, homicidal history. Substance Abuse History: Smoking history: Current every day smoker. Have you smoked in the past 12 months: No. Aproximately how many cigarettes per day: 20. Cigars Per Day: 0. Hx Chewing Tobacco Use: No. Initiated information on smoking cessation: Yes. 'Breaking Loose' booklet given: 01/30/18. - Substance & Tx. History. Hx Alcohol Use: Yes. Hx Substance Use: Yes. Substance Use Type : Alcohol. Hx Substance Use Treatment: Yes (detox, rehab). - Substances Abused. Alcohol. Route: Oral. Frequency: Daily. Amount used: LIQUOR- 1 PINT, BEER 3 (16oz). Age of first use: 14. Date of Last Use: 01/30/18 Medical History: UTI history, Anemia history Psychiatric History: Patient reports history of depression and anxiety, reports no psychiatgric hospitalization history, reports no medications taking prior to admission, denies suicidal and homisidal history. Rec: [id number] 50mg po tid, Vistaril 50mg po q4 prn for agitation. Physical/Sexual Abuse/Trauma History: Denies Additional Comment: [id number] 50mg po tid,. Vistaril 50mg po q4 prn for agitation. Mental Status Exam - Mental Status Exam Alert and Oriented to: Person Cognitive Function: Fair Patient Appearance: Unkempt Mood: Anxious, Irritable Affect: Labile Patient Behavior: Impulsive, Talkative, Cooperative Speech Pattern: Appropriate Voice Loudness: Moderately Loud Thought Process: Goal Oriented Thought Disorder: Being Controlled Hallucinations: Denies Suicidal Ideation: Denies Homicidal Ideation: Denies Insight/Judgement: Fair Sleep: Difficulty falling asleep Appetite: Fair Muscle strength/Tone: Normal Gait/Station: Normal Additional Comments: [id number] 50mg po tid,. Vistaril 50mg po q4 prn for agitation. Psychiatric Findings - Problem List ([place] 1, 2,3) (1) Alcohol dependence with uncomplicated withdrawal Current Visit: Yes Status: Acute (2) Nicotine dependence Current Visit: Yes Status: Chronic Qualifiers: Nicotine product type: cigarettes Substance use status: uncomplicated Qualified Code(s): F17.210 - Nicotine dependence, cigarettes, uncomplicated (3) Alcohol withdrawal Current Visit: No Status: Acute Qualifiers: Complication of substance-induced condition: uncomplicated Qualified Code(s ): F10.230 - Alcohol dependence with withdrawal, uncomplicated (4) Drug-induced mood disorder Current Visit: No Status: Acute - Initial Treatment Plan Initial Treatment Plan: [id number] 50mg po tid,. Vistaril 50mg po q4 prn for agitation.
[2018-01-31] MEDS: PRENATAL VITAMINS W/ FOLIC ACID TABLET (FP) PO SCH (10:06)
[2018-01-31] MEDS: NICOTINE 21 MG/24 HOURS TOPICAL PATCH TD SCH (10:07)
[2018-01-31 10:23] LABS: HEMATOCRIT 34.9 % (32.4-45.2); HEMOGLOBIN 11.1 GM/dL (10.7-15.3); MCH 23.7 pg (25.7-33.7); MCHC 31.7 g/dl (32.0-36.0); MEAN CELL VOLUME 74.8 fl (80-96); MEAN PLT VOLUME 7.2 fl (7.5-11.1); PLATELET COUNT 189 K/MM3 (134-434); RBC 4.66 M/mm3 (3.60-5.2); RDW 21.3 % (11.6-15.6); WHITE BLOOD COUNT 3.9 K/mm3 (4.0-10.0)
[2018-01-31 10:26] LABS: ALBUMIN 3.6 g/dl (3.4-5.0); ALK PHOS 72 U/L (45-117); ANION GAP 14 MMOL/L (8-16); BILIRUBIN,TOTAL 0.8 mg/dL (0.2-1); BLOOD UREA NITROGEN 7 mg/dL (7-18); CALCIUM 8.3 mg/dL (8.5-10.1); CHLORIDE 95 mmol/L (98-107); CO2 27 mmol/L (21-32); CREATININE 0.6 mg/dL (0.55-1.3); GLUCOSE,RANDOM 80 mg/dL (74-106); POTASSIUM 3.2 mmol/L (3.5-5.1); SGOT/AST 36 U/L (15-37); SGPT/ALT 23 U/L (13-61); SODIUM 136 mmol/L (136-145)
[2018-01-31] MEDS: QUEtiapine FUMARATE 50 MG TABLET PO SCH ×2 (15:02→22:20)
--- NOTE | 2018-01-31 15:10 | EKG ---
Test Reason : Blood Pressure : / mmHG Vent. Rate : 112 BPM Atrial Rate : 112 BPM P-R Int : 140 ms QRS Dur : 094 ms QT Int : 360 ms P-R-T Axes : 066 077 065 degrees QTc Int : 491 ms SINUS TACHYCARDIA OTHERWISE NORMAL ECG WHEN COMPARED WITH ECG OF 02-SEP-2017 23:27, NO SIGNIFICANT CHANGE WAS FOUND Confirmed by DAGMAR WILKINSON MD ([id number]) on 01/31/2018 3:09:54 PM Referred By: Confirmed By:DAGMAR WILKINSON MD
[2018-02-01 06:16] VITALS: PULSE 85
[2018-02-01] MEDS: chlordiazePOXIDE HCL 25 MG CAPSULE PO SCH ×2 (06:47→10:44)
[2018-02-01] MEDS: QUEtiapine FUMARATE 50 MG TABLET PO SCH (06:50)
[2018-02-01 09:30] VITALS: BP 135/92; TEMP 99.1
[2018-02-01] MEDS: NICOTINE 21 MG/24 HOURS TOPICAL PATCH TD SCH (10:44)
[2018-02-01] MEDS: PRENATAL VITAMINS W/ FOLIC ACID TABLET (FP) PO SCH (10:44)
[2018-02-01] MEDS ORDERED: IBUPROFEN 600 MG TABLET (FP) PO PRN (10:51)
--- NOTE | 2018-02-01 11:25 | PN ---
S CIWA - CIWA Score Nausea/Vomitin-No Nausea/No Vomiting Muscle Tremors: 4-Moderate,w/Arms Extend Anxiety: 4-Mod. Anxious/Guarded Agitation: 4-Moderately Restless Paroxysmal Sweats: 3 Orientation: 0-Oriented Tacttile Disturbances: 0-None Auditory Disturbances: 0-None Visual Disturbances: 0-None Headache: 1-Very Mild CIWA-Ar Total Score: 16 BHS Progress Note (SOAP) Subjective: anxiety shakes sweats irritable agitation interrupted sleep Objective: 01/31/18 11:21 Vital Signs - 24 hr 01/31/18 01/31/18 01/31/18 13:00 13:50 16:00 Temperature 98.6 F Pulse Rate 88 88 116 H Respiratory 18 18 18 Rate Blood Pressure 140/89 Laboratory Tests 01/31/18 01/31/18 01/31/18 07:00 07:00 07:00 WBC 3.9 L RBC 4.66 Hgb 11.1 Hct 34.9 MCV 74.8 L MCH 23.7 L D MCHC 31.7 L RDW 21.3 H Plt Count 189 D MPV 7.2 L Sodium 136 Potassium 3.2 L Chloride 95 L Carbon Dioxide 27 Anion Gap 14 BUN 7 Creatinine 0.6 Creat Clearance w eGFR > 60 Random Glucose 80 Calcium 8.3 L Total Bilirubin 0.8 AST 36 ALT 23 Alkaline Phosphatase 72 Total Protein 7.0 Albumin 3.6 RPR Titer Nonreactive aaox3 ambulating no acute distress Assessment: 01/31/18 11:24 withdrawal sx Plan: continue detox increase fluids
--- NOTE | 2018-02-01 11:27 | PN ---
[facility] Progress Note Note: pt states this place is not for me i need to be home. Pt signed out AMA. pt refused to listen to her need to stay and complete detox and the consequences to leaving may cause her to relapse. Pt states she will go home insisted on leaving.
--- NOTE | 2018-02-01 11:29 | DS ---
[facility] Detox Discharge Summary Admission Date: 01/30/18 - History Present History: Alcohol Dependence - Physical Exam Results Vital Signs: Vital Signs Temperature 99.1 F 02/01/18 09:30 Pulse Rate 85 02/01/18 09:30 Respiratory Rate 16 02/01/18 09:30 Blood Pressure 135/92 02/01/18 09:30 O2 Sat by Pulse Oximetry (%) - Treatment Hospital Course: Responded well, Discharged Condition Good - Medication Discharge Medications: Ambulatory Orders Medroxyprogesterone Acetate [Provera] 10 mg PO DAILY 09/02/17 Quetiapine Fumarate [Seroquel -] 50 mg PO TID #90 tablet 01/31/18 hydrOXYzine PAMOATE [Vistaril -] 50 mg PO QID #120 capsule 01/31/18 - Diagnosis (1) Alcohol dependence with uncomplicated withdrawal Current Visit: Yes Status: Chronic (2) Nicotine dependence Current Visit: Yes Status: Chronic Qualifiers: Nicotine product type: cigarettes Substance use status: uncomplicated Qualified Code(s): F17.210 - Nicotine dependence, cigarettes, uncomplicated (3) Uterine fibroid Current Visit: Yes Status: Chronic Qualifiers: Uterine leiomyoma location: unspecified location Qualified Code(s): D25.9 - Leiomyoma of uterus, unspecified - AMA Did Patient Leave Against Medical Advice: Yes
[2018-02-01] MEDS ORDERED: chlordiazePOXIDE 5 MG CAPSULE PO SCH (23:00)
[2018-02-02] MEDS ORDERED: chlordiazePOXIDE HCL 10 MG CAPSULE PO SCH (23:00)
== END 2018-02-01 12:05 | disposition home or self-care (01) | DRG 775 ==
LOC: YASAS 15:02 → Y6N 17:24
PROC: HZ2ZZZZ Detoxification Services for Substance Abuse Treatment (ICD-10-PCS; principal; 2018-01-30)
DX: F10.230 Alcohol dependence with withdrawal, uncomplicated (principal); F17.210 Nicotine dependence, cigarettes, uncomplicated; F19.24 Other psychoactive substance dependence with psychoactive substance-induced mood disorder; E86.0 Dehydration; D25.9 Leiomyoma of uterus, unspecified; Z86.19 Personal history of other infectious and parasitic diseases; Z86.2 Personal history of diseases of the blood and blood-forming organs and certain disorders involving the immune mechanism
CPT/HCPCS: 36415; 80053; 85027; 86593; 93005; 93010